=== PATIENT | female | born 1985 ===

== ENCOUNTER 2024-05-07 09:32 | Emergency (ER) | payer SELFPAY ==
[~2024-05-07] VITALS: Ht 170.2 cm; Wt 104.3 kg
[2024-05-07] MEDS ORDERED: NS 1,000 ML IV SCH (10:40)
[2024-05-07] MEDS ORDERED: Vancomycin HCL 2,000 MG in NS 520 ML IV ONE (10:40)
[2024-05-07 11:17] LABS: BASOPHILS ABSOLUTE AUTO 0.05 K/mm3 (0.00-0.23); BASOPHILS PERCENT AUTO 0 % (0-2); EOSINOPHILS ABSOLUTE AUTO 0.05 K/mm3 (0.00-0.68); EOSINOPHILS PERCENT AUTO 0 % (0-6); Hematocrit 39.4 % (33.0-51.0); Hemoglobin 13.1 g/dL (11.5-16.0); IMMATURE GRAN PERCENT AUTO 1 % (0-1); LYMPHOCYTES ABSOLUTE AUTO 1.14 K/mm3 (0.84-5.20); LYMPHOCYTES PERCENT AUTO 6 % (21-46); MONOCYTES ABSOLUTE AUTO 1.76 K/mm3 (0.16-1.47); MONOCYTES PERCENT AUTO 9 % (4-13); Mean Corpuscular HGB 27.6 pg (26.0-34.0); Mean Corpuscular HGB Conc 33.2 g/dL (31.5-36.5); Mean Corpuscular Volume 83 fL (80-100); Mean Platelet Volume 9.6 fL (9.1-12.4); NEUTROPHILS ABSOLUTE AUTO 16.36 K/mm3 (1.96-9.15); NEUTROPHILS PERCENT AUTO 84 % (41-73); Platelet Count 261 K/mm3 (150-400); RDW Coefficient Variation 13.1 % (11.7-14.2); Red Blood Cell Count 4.75 M/mm3 (3.80-5.20); White Blood Cell Count 19.46 K/mm3 (4.00-11.30)
[2024-05-07 11:37] LABS: Albumin, Blood 3.1 g/dL (3.4-5.0); Albumin/Globulin Ratio 0.8 (0.8-1.8); Bilirubin, Total 0.7 mg/dL (0.1-1.0); Bun/Creatinine Ratio 9.8 (12.0-20.0); Calcium, Blood 8.8 mg/dL (8.5-10.1); Creatinine, Blood 0.61 mg/dL (0.40-1.00); Potassium, Blood 3.7 mmol/L (3.5-5.5); Total Protein, Blood 7.1 g/dL (6.4-8.2)
[2024-05-07] MEDS ORDERED: DOXY100 PO (13:21)
== END 2024-05-07 13:45 | disposition home or self-care (01) ==
LOC: ER 09:32
PROVIDERS: Emergency Medicine
DX: A41.9 Sepsis, unspecified organism (principal); L03.311 Cellulitis of abdominal wall; K80.20 Calculus of gallbladder without cholecystitis without obstruction; Z86.14 Personal history of Methicillin resistant Staphylococcus aureus infection
CPT/HCPCS: 36415; 74177; 80053; 83605; 84703; 85025; 87040; 96365-59; 96366; 99284-25; J3370; J7030; J7040; Q9967

== ENCOUNTER → 2024-05-07 | Outpatient (CLI) | payer SELFPAY ==
[~2024-05-07] MED LIST: DOXY100 PO
== END | disposition home or self-care (01) ==
LOC: LAB SHORT 08:21 → LAB 08:21
DX: L02.211 Cutaneous abscess of abdominal wall (principal); A49.02 Methicillin resistant Staphylococcus aureus infection, unspecified site
CPT/HCPCS: 87070; 87077; 87147; 87186; 87205